=== PATIENT | male | born 1990 | race Caucasian/White ===

== ENCOUNTER 2020-07-09 12:51 | Emergency (ER) | payer MEDICAID ==
[~2020-07-09] VITALS: Ht 172.7 cm; Wt 104.5 kg
[2020-07-09 14:32] LABS: ANION GAP 14 mmol/L (8-16); CALCIUM, TOTAL 8.6 mg/dL (8.8-10.5); CARBON DIOXIDE 22 mmol/L (22-29); CHLORIDE 108 mmol/L (98-107); CREATININE 0.81 mg/dL (0.60-1.30); GLOMERULAR FILTR. RATE CALC > 60 mL/min (>60); GLUCOSE,RANDOM 105 mg/dL (70-110); POTASSIUM 3.7 mmol/L (3.5-5.1); SODIUM SERUM 144 mmol/L (136-145); UREA NITROGEN, BLOOD 10 mg/dL (7-18)
[2020-07-09 14:38] LABS: ALANINE AMINOTRANSFERASE 83 U/L (12-78); ALBUMIN 3.9 g/dL (3.4-5.0); ALKALINE PHOSPHATASE 73 U/L (46-116); ASPARTATE AMINOTRANSFERASE 54 U/L (15-37); BILIRUBIN,TOTAL 0.3 mg/dL (0.1-1.0); TOTAL PROTEIN, SERUM 7.5 g/dL (6.4-8.2)
[2020-07-09 14:53] LABS: ACETAMINOPHEN < 2 mcg/mL (10-30)
[2020-07-09 15:31] LABS: SALICYLATE 0.8 mg/dL (2.8-20.0)
[2020-07-09 16:58] LABS: AMPHET/METH SCREEN,URINE NEGATIVE (NEGATIVE); BARBITURATE SCREEN, URINE NEGATIVE (NEGATIVE); BENZODIAZEPINES SCREEN,URINE NEGATIVE (NEGATIVE); CANNABINOID SCREEN,URINE NEGATIVE (NEGATIVE); COCAINE SCREEN,URINE NEGATIVE (NEGATIVE); METHADONE SCREEN, URINE NEGATIVE (NEGATIVE); OPIATE SCREEN,URINE NEGATIVE (NEGATIVE)
[2020-07-09 17:01] LABS: PHENCYCLIDINE SCREEN,URINE NEGATIVE (NEGATIVE)
[2020-07-09 17:35] VITALS: BP 107/69
[2020-07-09 18:15] LABS: BASOPHILS % (AUTO) 1.6 % (0.0-2.0); HEMATOCRIT 43.5 % (41-53); HEMOGLOBIN 14.8 g/dL (13.5-17.5); LYMPHOCYTES # (AUTO) 1.8 K/uL (1.0-4.8); LYMPHOCYTES % (AUTO) 38.1 % (22.0-44.0); MEAN CORPUSCULAR HEMOGLOBIN 33.5 pg (26.0-34.0); MEAN CORPUSCULAR HGB CONC 34.1 G/dL (31.0-37.0); MEAN CORPUSCULAR VOLUME 98 fL (80-100); MONOCYTES # (AUTO) 0.3 K/uL (0.1-1.0); MONOCYTES % (AUTO) 6.6 % (2.0-9.0); NEUTROPHILS # (AUTO) 2.3 K/uL (1.8-7.7); NEUTROPHILS % (AUTO) 48.7 % (40.0-70.0); PLATELET COUNT (AUTO) 195 K/uL (150-450); RED BLOOD CELL COUNT(AUTO) 4.43 MIL/uL (4.50-5.90); RED CELL DISTRIBUTION WIDTH 12.8 % (11.5-14.5)
== END 2020-07-09 18:18 | disposition home or self-care (01) ==
LOC: EMS 12:51
DX: F10.129 Alcohol abuse with intoxication, unspecified (principal); Y90.8 Blood alcohol level of 240 mg/100 ml or more
CPT/HCPCS: 36415; 80053; 80307; 85025; 93005; 99291; G0480; G0481

== ENCOUNTER 2020-07-11 09:44 | Inpatient (IN) | payer MEDICAID ==
[~2020-07-11] VITALS: Ht 172.7 cm; Wt 240.6 kg
[2020-07-11 11:06] LABS: AMPHET/METH SCREEN,URINE NEGATIVE (NEGATIVE); BARBITURATE SCREEN, URINE NEGATIVE (NEGATIVE); BENZODIAZEPINES SCREEN,URINE POSITIVE (NEGATIVE); CANNABINOID SCREEN,URINE NEGATIVE (NEGATIVE); COCAINE SCREEN,URINE NEGATIVE (NEGATIVE); METHADONE SCREEN, URINE NEGATIVE (NEGATIVE); OPIATE SCREEN,URINE NEGATIVE (NEGATIVE)
[2020-07-11 11:09] LABS: PHENCYCLIDINE SCREEN,URINE NEGATIVE (NEGATIVE)
[2020-07-11 11:10] LABS: BASOPHILS % (AUTO) 2.1 % (0.0-2.0); EOSINOPHILS % (AUTO) 3.3 % (1.0-6.0); HEMATOCRIT 39.6 % (41-53); HEMOGLOBIN 13.9 g/dL (13.5-17.5); LYMPHOCYTES # (AUTO) 1.4 K/uL (1.0-4.8); LYMPHOCYTES % (AUTO) 28.8 % (22.0-44.0); MEAN CORPUSCULAR HEMOGLOBIN 34.2 pg (26.0-34.0); MEAN CORPUSCULAR VOLUME 98 fL (80-100); MONOCYTES # (AUTO) 0.5 K/uL (0.1-1.0); MONOCYTES % (AUTO) 10.1 % (2.0-9.0); NEUTROPHILS # (AUTO) 2.8 K/uL (1.8-7.7); NEUTROPHILS % (AUTO) 55.7 % (40.0-70.0); PLATELET COUNT (AUTO) 194 K/uL (150-450); RED BLOOD CELL COUNT(AUTO) 4.06 MIL/uL (4.50-5.90); RED CELL DISTRIBUTION WIDTH 12.8 % (11.5-14.5)
[2020-07-11 11:58] LABS: ANION GAP 8 mmol/L (8-16); CALCIUM, TOTAL 8.9 mg/dL (8.8-10.5); CARBON DIOXIDE 28 mmol/L (22-29); CHLORIDE 101 mmol/L (98-107); CREATININE 0.84 mg/dL (0.60-1.30); GLOMERULAR FILTR. RATE CALC > 60 mL/min (>60); GLUCOSE,RANDOM 103 mg/dL (70-110); SODIUM SERUM 137 mmol/L (136-145); UREA NITROGEN, BLOOD 9 mg/dL (7-18)
[2020-07-11 12:03] LABS: ALANINE AMINOTRANSFERASE 80 U/L (12-78); ALKALINE PHOSPHATASE 73 U/L (46-116); ASPARTATE AMINOTRANSFERASE 55 U/L (15-37); BILIRUBIN,TOTAL 0.2 mg/dL (0.1-1.0); TOTAL PROTEIN, SERUM 7.5 g/dL (6.4-8.2)
[2020-07-11 13:44] LABS: COVID AG,FIA SOURCE NASOPHARYNGEAL
[2020-07-11 17:23] VITALS: BP 126/79
[2020-07-12 08:00] VITALS: BP 111/76
[2020-07-12 10:00] VITALS: BP 119/77
[2020-07-12] MEDS: SERTRALINE HCL 50 MG TABLET PO SCH (10:02)
[2020-07-12] MEDS: OLANZapine 5 MG TABLET PO SCH ×2 (10:02→16:58)
[2020-07-12] MEDS: ChlordiazePOXIDE HCL 25 MG CAPSULE PO PRN ×2 (10:17→18:15)
[2020-07-12 16:00] VITALS: BP 107/62
[2020-07-12 18:00] VITALS: BP 110/67
[2020-07-12 22:00] VITALS: BP 104/81
[2020-07-13 06:00] VITALS: BP 106/71
[2020-07-13] MEDS: OLANZapine 5 MG TABLET PO SCH ×2 (08:04→16:32)
[2020-07-13] MEDS: SERTRALINE HCL 50 MG TABLET PO SCH (08:04)
[2020-07-13] MEDS: ChlordiazePOXIDE HCL 25 MG CAPSULE PO SCH ×4 (08:04→20:21)
[2020-07-13] MEDS ORDERED: IBUPROFEN 400 MG TABLET PO PRN (09:30)
[2020-07-13] MEDS ORDERED: GuaiFENesin/D-METHORPHAN [SUGAR-FREE] 200-20MG/10 ML SYRUP UDCUP PO PRN (09:30)
[2020-07-13] MEDS ORDERED: PETROLATUM,WHITE 28 GM JELLY TP PRN (09:30)
[2020-07-13] MEDS ORDERED: DOCUSATE SODIUM 100 MG CAPSULE PO PRN (09:30)
[2020-07-13] MEDS ORDERED: NICOTINE 14 MG/24 HOUR PATCH TD PRN (09:30)
[2020-07-13] MEDS ORDERED: ONDANSETRON HCL 4 MG TABLET PO PRN (09:30)
[2020-07-13] MEDS ORDERED: MAGNESIUM HYDROXIDE SUSPENSION 30 ML UDCUP PO PRN (09:30)
[2020-07-13] MEDS ORDERED: CloNIDine HCL 0.1 MG TABLET PO PRN (09:30)
[2020-07-13] MEDS ORDERED: MAG HYDROX/AL HYDROX/SIMETH ES 30 ML SUSPENSION UDCUP PO PRN (09:30)
[2020-07-13] MEDS ORDERED: LOPERAMIDE HCL 2 MG CAPSULE PO PRN (09:30)
[2020-07-13] MEDS ORDERED: ACETAMINOPHEN 325 MG TABLET PO PRN (09:30)
[2020-07-13] MEDS ORDERED: ALBUTEROL SULFATE HFA 90 MCG/PUFF 8 GM INHALER IH PRN (09:30)
[2020-07-13 09:44] VITALS: BP 133/79
[2020-07-13 10:00] VITALS: BP 121/86
[2020-07-13 16:00] VITALS: BP 100/68
[2020-07-13 18:45] VITALS: BP 100/68
[2020-07-14 06:52] VITALS: BP 119/73
[2020-07-14] MEDS: ChlordiazePOXIDE HCL 25 MG CAPSULE PO PRN (06:54)
[2020-07-14] MEDS: OLANZapine 5 MG TABLET PO SCH ×2 (08:01→16:22)
[2020-07-14] MEDS: SERTRALINE HCL 50 MG TABLET PO SCH (08:01)
[2020-07-14] MEDS: ChlordiazePOXIDE HCL 25 MG CAPSULE PO SCH ×4 (08:02→20:41)
[2020-07-14 08:38] VITALS: BP 134/75
[2020-07-14 08:40] VITALS: BP 134/75
[2020-07-14 16:26] VITALS: BP 113/64
[2020-07-14 16:27] VITALS: BP 113/64
[2020-07-15 06:19] VITALS: BP 119/80
[2020-07-15] MEDS: ChlordiazePOXIDE HCL 25 MG CAPSULE PO PRN (06:19)
[2020-07-15 06:23] VITALS: BP 119/80
[2020-07-15] MEDS ORDERED: ChlordiazePOXIDE HCL 10 MG CAPSULE PO PRN (07:00)
[2020-07-15] MEDS: OLANZapine 5 MG TABLET PO SCH (08:16)
[2020-07-15] MEDS: ChlordiazePOXIDE HCL 10 MG CAPSULE PO SCH ×2 (08:16→12:54)
[2020-07-15] MEDS: SERTRALINE HCL 50 MG TABLET PO SCH (08:16)
[2020-07-15] MEDS ORDERED: SERT-158 PO (09:23)
[2020-07-15] MEDS ORDERED: OLAN5TAB2 PO (09:23)
[2020-07-15 09:53] VITALS: BP 128/76
[2020-07-16] MEDS ORDERED: ChlordiazePOXIDE HCL 10 MG CAPSULE PO PRN (07:00)
== END 2020-07-15 13:51 | disposition home or self-care (01) | DRG 750 ==
LOC: EMS 09:47 → 3EI 13:44
PROVIDERS: ADMIT Psychiatry & Neurology Child & Adolescent Psychiatry; ATTEND Psychiatry & Neurology Child & Adolescent Psychiatry
DX: F25.1 Schizoaffective disorder, depressive type (principal); R45.851 Suicidal ideations; F41.9 Anxiety disorder, unspecified; R56.9 Unspecified convulsions; E66.01 Morbid (severe) obesity due to excess calories; Z68.45 Body mass index [BMI] 70 or greater, adult; F10.939 Alcohol use, unspecified with withdrawal, unspecified; Y90.7 Blood alcohol level of 200-239 mg/100 ml; Z59.0 Homelessness; Z20.822 Contact with and (suspected) exposure to COVID-19
CPT/HCPCS: 87426; 99285; G0480

== ENCOUNTER 2020-07-17 11:59 | Emergency (ER) | payer MEDICAID ==
[~2020-07-17] VITALS: Ht 172.7 cm; Wt 109.1 kg
[~2020-07-17 11:59] MED LIST: OLAN5TAB2 PO; SERT-158 PO
[2020-07-17 13:44] LABS: BASOPHILS % (AUTO) 1.3 % (0.0-2.0); EOSINOPHILS % (AUTO) 3.5 % (1.0-6.0); HEMATOCRIT 41.5 % (41-53); HEMOGLOBIN 14.2 g/dL (13.5-17.5); LYMPHOCYTES # (AUTO) 1.5 K/uL (1.0-4.8); MEAN CORPUSCULAR HEMOGLOBIN 33.7 pg (26.0-34.0); MEAN CORPUSCULAR HGB CONC 34.3 G/dL (31.0-37.0); MEAN CORPUSCULAR VOLUME 98 fL (80-100); MONOCYTES # (AUTO) 0.4 K/uL (0.1-1.0); MONOCYTES % (AUTO) 8.7 % (2.0-9.0); NEUTROPHILS # (AUTO) 2.6 K/uL (1.8-7.7); NEUTROPHILS % (AUTO) 54.5 % (40.0-70.0); PLATELET COUNT (AUTO) 212 K/uL (150-450); RED BLOOD CELL COUNT(AUTO) 4.23 MIL/uL (4.50-5.90); RED CELL DISTRIBUTION WIDTH 13.1 % (11.5-14.5)
[2020-07-17 13:51] LABS: ANION GAP 14 mmol/L (8-16); CARBON DIOXIDE 25 mmol/L (22-29); CHLORIDE 107 mmol/L (98-107); CREATININE 0.73 mg/dL (0.60-1.30); GLUCOSE,RANDOM 132 mg/dL (70-110); POTASSIUM 3.8 mmol/L (3.5-5.1); SODIUM SERUM 146 mmol/L (136-145); UREA NITROGEN, BLOOD 9 mg/dL (7-18)
[2020-07-17 13:52] LABS: CALCIUM, TOTAL 8.5 mg/dL (8.8-10.5); GLOMERULAR FILTR. RATE CALC > 60 mL/min (>60)
[2020-07-17 13:58] LABS: ALANINE AMINOTRANSFERASE 120 U/L (12-78); ALBUMIN 3.8 g/dL (3.4-5.0); ALKALINE PHOSPHATASE 105 U/L (46-116); ASPARTATE AMINOTRANSFERASE 83 U/L (15-37); BILIRUBIN,TOTAL 0.2 mg/dL (0.1-1.0); TOTAL PROTEIN, SERUM 7.4 g/dL (6.4-8.2)
[2020-07-17 14:38] LABS: COVID AG,FIA SOURCE NASOPHARYNGEAL
[2020-07-17 15:47] VITALS: BP 146/59
[2020-07-17] MEDS ORDERED: ChlordiazePOXIDE HCL 25 MG CAPSULE PO ONE (17:00)
== END 2020-07-17 17:07 | disposition home or self-care (01) ==
LOC: EMS 11:59
DX: F10.129 Alcohol abuse with intoxication, unspecified (principal); F19.10 Other psychoactive substance abuse, uncomplicated; F32.9 Major depressive disorder, single episode, unspecified; Z20.822 Contact with and (suspected) exposure to COVID-19; Y90.8 Blood alcohol level of 240 mg/100 ml or more
CPT/HCPCS: 36415; 80053; 85025; 87426; 99283; G0480